=== PATIENT | male | born 1945 | race Caucasian/White ===

== ENCOUNTER 2018-10-25 08:31 | Inpatient (IN) | payer MEDICARE, MEDICAID ==
[~2018-10-25] VITALS: Ht 180.3 cm; Wt 128.8 kg
[2018-10-25] VITALS (32 sets, daily range): BP systolic 135–192; BP diastolic 68–126
[~2018-10-25 08:31] MED LIST: CYCL-1 PO
[2018-10-25] MEDS ORDERED: normal saline 1000ml 1,000 ML IV SCH ×2 (08:50→12:33)
[2018-10-25] MEDS ORDERED: CETI10TA15 PO (09:33)
[2018-10-25] MEDS ORDERED: FURO40TA4 PO (09:33)
[2018-10-25] MEDS ORDERED: CLOP75TA15 PO (09:33)
[2018-10-25] MEDS ORDERED: MELO-102 PO (09:33)
[2018-10-25] MEDS ORDERED: SIMV20TA PO (09:33)
[2018-10-25 09:36] LABS: BASOPHILS % (AUTO) 0.3 % (0-1); EOSINOPHILS # (AUTO) 0.3 X10'3 (0-0.9); EOSINOPHILS % (AUTO) 3.9 % (0-6); HEMATOCRIT 49.7 % (42.0-52.0); HEMOGLOBIN 16.5 g/dl (14.0-17.9); LYMPHOCYTES # (AUTO) 1.6 X10'3 (1.1-4.8); LYMPHOCYTES % (AUTO) 21.3 % (21-51); MEAN CORPUSCULAR HEMOGLOBIN 32.8 PG (27.0-31.0); MEAN CORPUSCULAR HGB CONC 33.3 % (33.0-36.5); MEAN CORPUSCULAR VOLUME 98.5 FL (78-98); MEAN PLATELET VOLUME 8.4 FL (7.4-10.4); MONOCYTES # (AUTO) 0.8 X10'3 (0-0.9); MONOCYTES % (AUTO) 9.9 % (2-12); NEUTROPHILS % (AUTO) 64.6 % (42-75); PLATELET COUNT 242 X10'3 (140-440); RED BLOOD COUNT 5.05 X10'6 (4.70-6.10); RED CELL DISTRIBUTION WIDTH 13.9 % (11.5-14.5); WHITE BLOOD COUNT 7.8 X10'3 (4.5-11.0)
[2018-10-25 09:40] LABS: ALBUMIN 3.3 G/DL (3.4-5.0); ANION GAP 9 (8-16); BLOOD UREA NITROGEN 18 MG/DL (7-18); BUN/CREATININE RATIO 20.2 (5.4-32.0); CALCIUM 9.1 MG/DL (8.5-10.1); CHLORIDE 102 MMOL/L (99-107); CREATININE 0.89 MG/DL (0.60-1.10); GLUCOSE 115 MG/DL (70-104); POTASSIUM 3.9 MMOL/L (3.5-5.1); SODIUM 140 MMOL/L (135-145); TOTAL CARBON DIOXIDE 29.2 MMOL/L (24-32); eGFR 84 ML/MIN
[2018-10-25 10:00] LABS: INR 1.1 INR; PROTHROMBIN TIME 11.1 SECONDS (9.0-12.0)
[2018-10-25] MEDS ORDERED: LIDOcaine 1%/PF 5ML 10 MG/ML VIAL SQ ONE (10:25)
[2018-10-25] MEDS ORDERED: fentaNYL/PF 50MCG/1 ML 2ML syringe IV PRN (10:25)
[2018-10-25] MEDS ORDERED: midazolam 2 mg/2 ml injection IV PRN (10:25)
[2018-10-25] MEDS ORDERED: LIDOcaine 1%/PF 5ML 10 MG/ML VIAL ONE ×3 (10:34→11:26)
[2018-10-25] MEDS ORDERED: midazolam 2 mg/2 ml injection ONE (10:43)
[2018-10-25] MEDS ORDERED: fentaNYL/PF 50MCG/1 ML 2ML syringe ONE ×2 (10:43→11:43)
[2018-10-25] MEDS ORDERED: LIDOcaine 1% (10mg/ml) 2ml vial ONE ×2 (11:36→12:02)
[2018-10-25] MEDS ORDERED: mag hydrox/Alum hydrox/simeth 30ml oral suspension PO PRN (13:40)
[2018-10-25] MEDS ORDERED: docusate sod 100mg capsule PO PRN (13:40)
[2018-10-25] MEDS ORDERED: potassium Cl 40MEQ/NS 500ml 500 ML IV PRN ×2 (13:40)
[2018-10-25] MEDS ORDERED: morphine 2 MG/ML inj. syringe IV PRN ×2 (13:40)
[2018-10-25] MEDS ORDERED: ondansetron/PF 4mg/2ml inj IV PRN (13:40)
[2018-10-25] MEDS ORDERED: magnesium 4gm in 100ml NS 100 ML IV PRN (13:40)
[2018-10-25] MEDS ORDERED: acetaminophen 325mg tablet PO PRN (13:40)
[2018-10-25] MEDS ORDERED: potassium Cl 20 mEq SR tablet PO PRN ×2 (13:40)
[2018-10-25] MEDS ORDERED: albuterol 2.5 MG/3 ML nebule NEB PRN (13:40)
[2018-10-25] MEDS: HYDROcodone/acetaminophen 5mg/325mg tablet PO PRN ×2 (13:51→21:44)
--- NOTE | 2018-10-25 14:09 | NUR ---
I have received report from Britt OLSON and had the opportunity to ask questions and assume patient care.
[2018-10-25] MEDS ORDERED: hydrALAZINE 20mg/ml inj. IV PRN (14:25)
[2018-10-25] MEDS ORDERED: morphine 4 MG/ML inj SYRINge IV PRN ×2 (15:55)
--- NOTE | 2018-10-25 15:56 | NUR ---
Paged Dr Madera to address patient's med rec.
--- NOTE | 2018-10-25 16:26 | NUR ---
Paged Dr Madera to make sure he is aware of patient's hacking cough. Patient states he has had it for four years. Addendum: 10/25/18 at 1655 by Altagracia Nicholson RN Spoke with Dr Madera about patient's chronic cough, notified him that patient has an aggressive coughing spell about every ten minutes or so. He ordered Tessalon perles 200mg PO TID scheduled, and does not want any further imaging at this time.
--- NOTE | 2018-10-25 18:20 | NUR ---
Problems reprioritized. Patient report given, questions answered & plan of care reviewed with Sanju OLSON.
[2018-10-25] MEDS: benzonatate 100mg capsule PO SCH (18:40)
[2018-10-26 03:00] VITALS: BP 158/101
[2018-10-26] MEDS: HYDROcodone/acetaminophen 5mg/325mg tablet PO PRN ×2 (04:52→08:51)
[2018-10-26 05:53] LABS: BASOPHILS % (AUTO) 0.5 % (0-1); EOSINOPHILS # (AUTO) 0.3 X10'3 (0-0.9); EOSINOPHILS % (AUTO) 3.8 % (0-6); HEMATOCRIT 47.3 % (42.0-52.0); HEMOGLOBIN 15.7 g/dl (14.0-17.9); LYMPHOCYTES # (AUTO) 1.4 X10'3 (1.1-4.8); LYMPHOCYTES % (AUTO) 16.8 % (21-51); MEAN CORPUSCULAR HEMOGLOBIN 32.8 PG (27.0-31.0); MEAN CORPUSCULAR HGB CONC 33.2 % (33.0-36.5); MEAN CORPUSCULAR VOLUME 98.9 FL (78-98); MONOCYTES # (AUTO) 0.7 X10'3 (0-0.9); MONOCYTES % (AUTO) 8.9 % (2-12); NEUTROPHILS # (AUTO) 5.8 X10'3 (1.8-7.7); PLATELET COUNT 228 X10'3 (140-440); RED BLOOD COUNT 4.78 X10'6 (4.70-6.10); RED CELL DISTRIBUTION WIDTH 13.7 % (11.5-14.5); WHITE BLOOD COUNT 8.3 X10'3 (4.5-11.0)
--- NOTE | 2018-10-26 06:00 | NUR ---
Patient in room MED 313. I have received report from Sanju OLSON and had the opportunity to ask questions and assume patient care.
[2018-10-26 06:12] LABS: ALANINE AMINOTRANSFERASE 35 U/L (12-78); ALBUMIN 3.2 G/DL (3.4-5.0); ALBUMIN/GLOBULIN RATIO 0.7 (1.1-1.5); ALKALINE PHOSPHATASE 224 IU/L (46-116); ANION GAP 10 (8-16); ASPARTATE AMINO TRANSFERASE 58 U/L (10-37); BILIRUBIN,TOTAL 0.8 MG/DL (0.1-1.0); BLOOD UREA NITROGEN 16 MG/DL (7-18); BUN/CREATININE RATIO 18.2 (5.4-32.0); CHLORIDE 99 MMOL/L (99-107); CHOL/HDL RATIO 4.2 (0.00-4.99); CHOLESTEROL 157 MG/DL (0-200); CREATININE 0.88 MG/DL (0.60-1.10); GLUCOSE 122 MG/DL (70-104); HDL CHOLESTEROL 37 MG/DL (35-60); LDL CHOLESTEROL 102 MG/DL (50-100); MAGNESIUM 1.8 MG/DL (1.5-2.4); POTASSIUM 4.3 MMOL/L (3.5-5.1); SODIUM 136 MMOL/L (135-145); TOTAL CARBON DIOXIDE 26.8 MMOL/L (24-32); TOTAL PROTEIN 8.1 G/DL (6.4-8.2); TRIGLYCERIDES 101 MG/DL (20-135); eGFR 85 ML/MIN
--- NOTE | 2018-10-26 06:43 | NUR ---
Problems reprioritized. Patient report given, questions answered & plan of care reviewed with WESLEY Stevenson
[2018-10-26 07:00] VITALS: BP 165/66
[2018-10-26] MEDS: benzonatate 100mg capsule PO SCH ×2 (07:09)
[2018-10-26] MEDS ORDERED: non-formulary drug (Simvastatin (Zocor) 1 TAB) PO SCH (08:00)
[2018-10-26] MEDS ORDERED: cetirizine 10mg tablet PO SCH (08:00)
[2018-10-26] MEDS ORDERED: furosemide 40mg tablet PO SCH (08:00)
[2018-10-26] MEDS ORDERED: atorvastatin 10mg tablet PO SCH (08:00)
[2018-10-26] MEDS ORDERED: K and/or MAG REPLACEMENT MC SCH (08:00)
[2018-10-26 11:15] VITALS: BP 159/77
== END 2018-10-26 11:10 | disposition home or self-care (01) | DRG 200 ==
LOC: SSTAY O 08:31 → MED 3N 15:49
PROVIDERS: ADMIT Family Medicine; ATTEND Family Medicine
PROC: 0FB13ZX Excision of Right Lobe Liver, Percutaneous Approach, Diagnostic (ICD-10-PCS; principal; 2018-10-25)
PROC: 0W9930Z Drainage of Right Pleural Cavity with Drainage Device, Percutaneous Approach (ICD-10-PCS; 2018-10-25)
DX: J95.811 Postprocedural pneumothorax (principal); C22.0 Liver cell carcinoma; Y84.8 Other medical procedures as the cause of abnormal reaction of the patient, or of later complication, without mention of misadventure at the time of the procedure; E78.00 Pure hypercholesterolemia, unspecified; E78.5 Hyperlipidemia, unspecified; F17.210 Nicotine dependence, cigarettes, uncomplicated; I10 Essential (primary) hypertension; I25.10 Atherosclerotic heart disease of native coronary artery without angina pectoris; J44.9 Chronic obstructive pulmonary disease, unspecified; E66.01 Morbid (severe) obesity due to excess calories; I73.9 Peripheral vascular disease, unspecified; Z98.41 Cataract extraction status, right eye; Z79.02 Long term (current) use of antithrombotics/antiplatelets; Z95.1 Presence of aortocoronary bypass graft; Z68.39 Body mass index [BMI] 39.0-39.9, adult; Z90.49 Acquired absence of other specified parts of digestive tract; Z98.42 Cataract extraction status, left eye; Y92.89 Other specified places as the place of occurrence of the external cause; Z79.899 Other long term (current) drug therapy
CPT/HCPCS: 32557; 36415; 47000; 71045; 77012; 80048; 80053; 80061; 83735; 85025; 85610; 87070; 88173; 88305; 88341; 88342; 99152; 99153; C2613; G0378; J2001; J2250; J3010; J3490; J7030

== ENCOUNTER 2019-03-01 11:05 | Day surgery (SDC) | payer MEDICARE, MEDICAID ==
[~2019-03-01] VITALS: Ht 180.3 cm; Wt 123.6 kg
[2019-03-01] VITALS (14 sets, daily range): BP systolic 133–179; BP diastolic 67–106
[~2019-03-01 11:05] MED LIST changes: +CETI10TA15 PO; +CLOP75TA15 PO; -CYCL-1 PO; +FURO40TA4 PO; +MELO-102 PO; +SIMV20TA PO
[2019-03-01] MEDS ORDERED: LORazepam 0.5 MG tablet PO PRN (11:30)
[2019-03-01] MEDS ORDERED: LIDOcaine/PRILOcaine 5gm cream TP ONE (11:30)
[2019-03-01] MEDS ORDERED: diphenhydrAMINE 25mg capsule PO PRN (11:30)
[2019-03-01] MEDS ORDERED: normal saline 1,000 ML IV SCH (11:30)
[2019-03-01] MEDS ORDERED: METO25TA6 PO (11:45)
[2019-03-01] MEDS ORDERED: ASPI81TA52 PO (11:45)
[2019-03-01] MEDS ORDERED: LORA10TA7 PO (11:45)
[2019-03-01] MEDS ORDERED: VITE1000C PO (11:45)
[2019-03-01] MEDS ORDERED: OMEG1CAP2 PO (11:45)
[2019-03-01] MEDS ORDERED: TRAM50TA2 PO (11:45)
[2019-03-01] MEDS ORDERED: CINN500C15 PO (11:45)
[2019-03-01] MEDS ORDERED: iohexol 350MG/ML 100ml bottle IV ONE (17:30)
[2019-03-01] MEDS ORDERED: LIDOcaine 1% (10mg/ml)w/preservative injection 20ml MDV ONE (17:30)
[2019-03-01] MEDS ORDERED: nitroGLYCERIN-Tridil 50MG/D5W 250 ML IV ONE (17:31)
[2019-03-01] MEDS ORDERED: heparin 1,000unit/ml 10ml vial 10 ML ONE (17:31)
[2019-03-01] MEDS ORDERED: verapamil 2.5 mg/ml inj IV ONE (17:31)
[2019-03-01] MEDS ORDERED: fentaNYL/PF 50MCG/1 ML 2ML syringe ONE (17:52)
[2019-03-01] MEDS ORDERED: midazolam 2 mg/2 ml injection ONE (17:52)
[2019-03-01] MEDS ORDERED: iohexol 350 MG/ML 50ML vial IV ONE (18:16)
[2019-03-01] MEDS ORDERED: hydrALAZINE 20mg/ml inj. IV ONE (18:39)
[2019-03-01] MEDS ORDERED: OXAZEpam 15mg capsule PO PRN (20:35)
[2019-03-01] MEDS ORDERED: proCHLORperazine 10 MG/2 ml inj IV PRN (20:35)
[2019-03-01] MEDS ORDERED: ondansetron/PF 4mg/2ml inj IV PRN (20:35)
[2019-03-01] MEDS ORDERED: HYDROcodone/acetaminophen 10/325mg tab PO PRN (20:35)
[2019-03-01] MEDS ORDERED: HYDROcodone/acetaminophen 5mg/325mg tablet PO PRN (20:35)
--- NOTE | 2019-03-01 20:50 | NUR ---
Report received from [facility] Stay. Pt brought to room 307 in a gurney and transferred to bed. R Groin site Fem Stop in place and no s/s of bleeding or Hematoma to site. Pt placed on monitor. VSS. Pt LE pulses present using doppler and sensation intact per pt. Pt's brother with him. NS @ 100/hr to L forearm IV. Pt anxious to go home he stated but denied other needs at this time.
--- NOTE | 2019-03-01 22:00 | NUR ---
Pt Fem stop removed. No s/s of bleeding or hematoma and dressing intact that is CDI. Bilat LE pulses have remained audible with doppler and sensation intact per pt. VS have remained stable. Pt assisted to sit up and get dressed. Pt tolerated all well and has had no s/s of complications or distress. Discharge instructions given to pt and his brother and both stated understanding. IV removed from L FA cannula intact. R groin checked and has no s/s of hematoma or bleeding.
--- NOTE | 2019-03-01 22:30 | NUR ---
Pt helped to wheelchair. One last look at R groin and it had no s/s of bleeding or hematoma. Pt had all his belongings. He was taken via wheelchair to private vehicle driven by his brother and left without event.
== END 2019-03-01 22:30 | disposition home or self-care (01) ==
LOC: SSTAY O 11:05 → MED 3N 21:21 → SSTAY O 22:30
PROVIDERS: ATTEND Internal Medicine Interventional Cardiology
DX: I25.10 Atherosclerotic heart disease of native coronary artery without angina pectoris (principal); I25.84 Coronary atherosclerosis due to calcified coronary lesion; I10 Essential (primary) hypertension; E78.5 Hyperlipidemia, unspecified; J44.9 Chronic obstructive pulmonary disease, unspecified; I73.9 Peripheral vascular disease, unspecified; Z95.1 Presence of aortocoronary bypass graft; F17.210 Nicotine dependence, cigarettes, uncomplicated; I25.82 Chronic total occlusion of coronary artery; I27.20 Pulmonary hypertension, unspecified; E66.9 Obesity, unspecified
CPT/HCPCS: 93005; 93459; 99152; 99153; J0360; J1644; J2001; J2250; J3010; J7030; Q0163; Q9967; C1769; G0378; J3490